=== PATIENT | female | born 1955 | race Caucasian/White ===

== ENCOUNTER → 2017-07-09 | Outpatient (CLI) | payer BC | LOC: FIMAGING 10:00 | PROVIDERS: ATTEND Internal Medicine Hematology & Oncology | DX: Z12.31 Encounter for screening mammogram for malignant neoplasm of breast (principal) | CPT/HCPCS: G0202 ==

== ENCOUNTER → 2018-10-25 | Outpatient (CLI) | payer BC | LOC: CIMAGING 10:39 | PROVIDERS: ATTEND Physician Assistant Medical | DX: J11.1 Influenza due to unidentified influenza virus with other respiratory manifestations (principal); Z86.19 Personal history of other infectious and parasitic diseases; R07.9 Chest pain, unspecified | CPT/HCPCS: 71046-PO ==

== ENCOUNTER → 2018-12-24 | Outpatient (CLI) | payer BC | LOC: EMCIMAGING 15:02 | PROVIDERS: ATTEND Family Medicine | DX: M54.31 Sciatica, right side (principal); M47.897 Other spondylosis, lumbosacral region | CPT/HCPCS: 72110-PN ==